=== PATIENT | female | born 1970 | race Caucasian/White ===

== ENCOUNTER 2018-11-21 20:38 | Emergency (ER) | payer OTHER ==
[~2018-11-21] VITALS: Ht 142.2 cm; Wt 72.7 kg
[2018-11-21 20:54] LABS: GLUCOSE,POINT OF CARE 222 MG/DL (70-110)
[2018-11-21] MEDS ORDERED: VALS160T2 PO (20:54)
[2018-11-21] MEDS ORDERED: METF-960 PO (20:54)
[2018-11-21] MEDS ORDERED: ROSU20TA23 PO (20:54)
[2018-11-21] MEDS ORDERED: CANA100T PO (20:54)
[2018-11-21] MEDS ORDERED: ASPI-989 PO (20:54)
[2018-11-21] MEDS ORDERED: SODIUM CHLORIDE 0.9% 1,000 ML IV ONE (21:50)
[2018-11-21] MEDS ORDERED: ONDANSETRON HCL 4 MG/2 ML VIAL IVP ONE (22:00)
[2018-11-21 22:24] LABS: APPEARANCE,URINE TURBID (CLEAR); BILIRUBIN,URINE NEGATIVE (NEGATIVE); GLUCOSE, URINE (UA) 100 mg/dL (NEGATIVE); KETONES,URINE TRACE mg/dL (NEGATIVE); LEUKOCYTE ESTERASE ,URINE NEGATIVE (NEGATIVE); NITRATE,URINE NEGATIVE (NEGATIVE); OCCULT BLOOD,URINE LARGE (NEGATIVE); PROTEIN,URINE TRACE (NEGATIVE); UROBILINOGEN,URINE 0.2 mg/dL (<=1.0)
[2018-11-21 22:28] LABS: HEMATOCRIT 40.9 % (36-46); HEMOGLOBIN 13.9 g/dL (12.0-16.0); MEAN CORPUSCULAR HEMOGLOBIN 29.2 pg (26.0-34.0); MEAN CORPUSCULAR VOLUME 86 fL (80-100); PLATELET COUNT (AUTO) 439 K/uL (150-450); RED BLOOD CELL COUNT(AUTO) 4.76 MIL/uL (4.00-5.20); RED CELL DISTRIBUTION WIDTH 13.6 % (11.5-14.5)
[2018-11-21 22:32] LABS: ANION GAP 14 mmol/L (8-16); CARBON DIOXIDE 23 mmol/L (22-29); CHLORIDE 96 mmol/L (98-107); CREATININE 0.91 mg/dL (0.60-1.30); GLOMERULAR FILTR. RATE CALC > 60 mL/min (>60); GLUCOSE,RANDOM 303 mg/dL (70-110); POTASSIUM 4.3 mmol/L (3.5-5.1); SODIUM SERUM 133 mmol/L (136-145); UREA NITROGEN, BLOOD 18 mg/dL (7-18)
[2018-11-21 22:38] LABS: ALANINE AMINOTRANSFERASE 28 U/L (12-78); ALBUMIN 3.9 g/dL (3.4-5.0); ALKALINE PHOSPHATASE 105 U/L (46-116); ASPARTATE AMINOTRANSFERASE 16 U/L (15-37); BILIRUBIN,TOTAL 0.3 mg/dL (0.1-1.0); LIPASE 81 U/L (73-393); TOTAL PROTEIN, SERUM 8.5 g/dL (6.4-8.2)
[2018-11-21 22:45] LABS: RBC,URINE 26-50 /HPF (0-2); WBC,URINE 0-2 /HPF (0-5)
[2018-11-21 22:46] LABS: AMORPHOUS SEDIMENT,UR Many /LPF (None Seen); BACTERIA,URINE None Seen /HPF (None Seen); SQUAMOUS EPITHELIAL CELL,UR Rare /LPF (None Seen)
[2018-11-21 22:55] LABS: BAND NEUTROPHILS % (MANUAL) 10 % (0-5); LYMPHOCYTES % (MANUAL) 4 % (22-44); MONOCYTES % (MANUAL) 3 % (2-9); SEGMENTED NEUTROPHILS % 83 % (40-70)
[2018-11-21] MEDS ORDERED: FAMOTIDINE 10 MG/ML 2 ML VIAL IVP ONE (23:30)
[2018-11-21] MEDS ORDERED: PB/HYOSCY/ATR/SCOP/LIDO/MAALOX 55 ML BOTTLE PO ONE (23:30)
[2018-11-21 23:48] LABS: HCG,QUANTITATIVE < 1 mIU/mL (0-6)
[2018-11-22] MEDS ORDERED: AZITHROMYCIN 250 MG TABLET PO ONE (01:00)
[2018-11-22 01:14] VITALS: BP 118/73
== END 2018-11-22 01:22 | disposition home or self-care (01) ==
LOC: EMS 20:38
DX: K52.9 Noninfective gastroenteritis and colitis, unspecified (principal); E11.9 Type 2 diabetes mellitus without complications; E78.00 Pure hypercholesterolemia, unspecified; I10 Essential (primary) hypertension; Z79.899 Other long term (current) drug therapy
CPT/HCPCS: 36415; 80053; 81001; 82962; 83690; 84702; 85025; 96361; 96374; 96375; 99283; J2405; J3490

== ENCOUNTER 2024-03-25 15:23 | Emergency (ER) | payer OTHER ==
[~2024-03-25] VITALS: Ht 147.3 cm; Wt 71.4 kg
[~2024-03-25 15:23] MED LIST: ASPI-989 PO; CANA100T PO; METF-1211 PO; ROSU20TA73 PO; VALS160T2 PO
[2024-03-25 15:26] VITALS: BP 145/72; PULSE 83; RESP 16; TEMP 98.4; O2SAT 98
[2024-03-25] MEDS ORDERED: SEMA1PEN3 SQ (15:34)
[2024-03-25] MEDS ORDERED: VALS320T17 PO (15:34)
[2024-03-25] MEDS ORDERED: ASPI-1515 PO (15:34)
[2024-03-25] MEDS ORDERED: AMOX1TAB15 PO (15:34)
[2024-03-25] MEDS ORDERED: AMLO10TA55 PO (15:34)
[2024-03-25] MEDS ORDERED: INSU3INS3 SQ (15:34)
[2024-03-25] MEDS ORDERED: ROSU40TA88 PO (15:34)
[2024-03-25] MEDS ORDERED: EMPA25TA3 PO (15:34)
[2024-03-25] MEDS ORDERED: METF-446 PO (15:34)
[2024-03-25 15:59] LABS: COVID AG,FIA SOURCE NASAL SWAB
[2024-03-25 16:23] LABS: INFLUENZA TYPE A NEGATIVE FOR TYPE A (NEGATIVE); INFLUENZA TYPE B NEGATIVE FOR TYPE B (NEGATIVE); SARS-COV2 (COVID) ANTIGEN,FIA Negative (Negative)
== END 2024-03-25 18:26 | disposition home or self-care (01) ==
LOC: EMS 15:23
DX: R05.9 Cough, unspecified (principal); E11.9 Type 2 diabetes mellitus without complications; E78.00 Pure hypercholesterolemia, unspecified; I10 Essential (primary) hypertension; Z20.822 Contact with and (suspected) exposure to COVID-19
CPT/HCPCS: 71045; 82962; 87804; 99284